=== PATIENT | female | born 1970 | race Two or more races ===

== ENCOUNTER → 2022-05-25 | Outpatient (CLI) | payer OTHER ==
[~2022-05-25] MED LIST: NEURONTIN600 MG
== END | disposition home or self-care (01) ==
LOC: RAD 10:49
DX: M25.572 Pain in left ankle and joints of left foot (principal)

== ENCOUNTER 2022-05-28 07:12 | Outpatient (CLI) | payer OTHER | END 2022-05-28 08:24 | disposition home or self-care (01) | LOC: NUCLEAR 07:12 | DX: I73.9 Peripheral vascular disease, unspecified (principal) ==